=== PATIENT | male | born 1985 | race Two or more races ===

== ENCOUNTER 2025-04-22 19:40 | Emergency (ER) | payer OTHER ==
[~2025-04-22] VITALS: Ht 167.6 cm; Wt 77.0 kg
[2025-04-22 19:50] VITALS: O2SAT 100
[2025-04-22 20:03] VITALS: BP 139/96; PULSE 72; RESP 18; TEMP 36.7; O2SAT 100
[2025-04-22] MEDS ORDERED: ACET-2708 MT (21:28)
== END 2025-04-22 22:30 | disposition home or self-care (01) ==
LOC: ER 19:40
DX: M79.672 Pain in left foot (principal); E03.9 Hypothyroidism, unspecified; Z79.899 Other long term (current) drug therapy
CPT/HCPCS: 73630; 99283; Z7610 ×2; A6449